=== PATIENT | female | born 1990 ===

== ENCOUNTER 2024-06-17 17:55 | Outpatient (REF) | payer SELFPAY ==
[2024-06-18 11:46] LABS: Bacterial Vaginosis PCR NEGATIVE (Negative); Candida Group PCR NOT DETECTED (Not Detect); Candida glab krusei PCR NOT DETECTED (Not Detect); Trichomonas vaginalis PCR NOT DETECTED (Not Detect)
[2024-06-18 12:19] LABS: CT PCR NOT DETECTED (Not Detect.); NG PCR NOT DETECTED (Not Detect.)
[2024-06-19 17:18] LABS: C. trachomatis RNA TMA NOT DETECTED (NOT DETECTED); N. gonorrhoeae RNA TMA NOT DETECTED (NOT DETECTED)
[2024-06-26 14:25] LABS: Trichomonas (NAAT) NOT DETECTED
== END 2024-06-17 17:56 | disposition home or self-care (01) ==
LOC: HO.LNP 17:55
PROVIDERS: Visit Provider General Practice
DX: Z12.4 Encounter for screening for malignant neoplasm of cervix (principal); Z11.3 Encounter for screening for infections with a predominantly sexual mode of transmission; Z11.51 Encounter for screening for human papillomavirus (HPV)
CPT/HCPCS: 81515; 87491; 87591; 87626; 87661; 88175